=== PATIENT | male | born 1990 | race Caucasian/White ===

== ENCOUNTER 2017-09-12 00:47 | Emergency (ER) | payer MEDICAID ==
[~2017-09-12] VITALS: Ht 180.3 cm; Wt 83.9 kg
[~2017-09-12 00:47] MED LIST: ANTOXYBENA AS; CETI10 PO; CYCL10 PO; FAMO20 PO; HYDACE5 PO; IBUP400 PO; IBUP800 PO; PRED20 PO; TRAM50 PO
== END 2017-09-12 01:50 | disposition home or self-care (01) ==
LOC: ER 00:47
DX: F15.10 Other stimulant abuse, uncomplicated (principal); F17.210 Nicotine dependence, cigarettes, uncomplicated
CPT/HCPCS: 99285

== ENCOUNTER 2024-04-16 19:31 | Emergency (ER) | payer OTHER ==
[~2024-04-16] VITALS: Ht 180.3 cm; Wt 117.9 kg
[2024-04-16 20:14] VITALS: BP 151/89
[2024-04-16] MEDS ORDERED: Cephalexin Monohydrate 500 MG Cap PO ONE (23:00)
[2024-04-16] MEDS ORDERED: Trimethoprim/Sulfamethoxazole DS Tab PO ONE (23:00)
[2024-04-16] MEDS ORDERED: CEPH500 PO (23:03)
[2024-04-16] MEDS ORDERED: BACTRIM DS TAB1 EAC1 PO (23:03)
[2024-04-16] MEDS ORDERED: BUPRENORPHIN-N1 EAC1 SL (23:04)
[2024-04-16] MEDS ORDERED: Buprenorphine HCL/Naloxone HCL 8MG-2MG Tab SL ONE (23:05)
== END 2024-04-16 23:12 | disposition home or self-care (01) ==
LOC: ER 19:31
DX: L03.221 Cellulitis of neck (principal); F17.210 Nicotine dependence, cigarettes, uncomplicated; Z76.0 Encounter for issue of repeat prescription; Z79.899 Other long term (current) drug therapy
CPT/HCPCS: 99282; A9270

== ENCOUNTER 2024-04-17 13:07 | Emergency (ER) | payer OTHER ==
[~2024-04-17] VITALS: Ht 182.9 cm; Wt 126.5 kg
[~2024-04-17 13:07] MED LIST changes: +BACTRIM DS TAB1 EAC1 PO; +BUPRENORPHIN-N1 EAC1 SL; +CEPH500 PO
[2024-04-17 14:24] VITALS: BP 142/85
[2024-04-17] MEDS ORDERED: RX Prepack 2 Tabs Ondansetron ODT 4MG UD ONE (16:00)
[2024-04-17] MEDS ORDERED: Ondansetron 4 MG SoluTab SL ONE (16:00)
== END 2024-04-17 16:03 | disposition home or self-care (01) ==
LOC: ER 13:07
DX: Z76.89 Persons encountering health services in other specified circumstances (principal); F11.90 Opioid use, unspecified, uncomplicated; F17.210 Nicotine dependence, cigarettes, uncomplicated; Z79.899 Other long term (current) drug therapy
CPT/HCPCS: 99281; A9270